=== PATIENT | male | born 1965 | race Caucasian/White ===

== ENCOUNTER 2017-03-22 11:24 | Emergency (ER) | payer OTHER ==
[~2017-03-22] VITALS: Ht 180.3 cm; Wt 85.0 kg
[2017-03-22] MEDS ORDERED: LISINOPRIL20 MG PO (11:36)
[2017-03-22] MEDS ORDERED: METOPROL TAR25 MG PO (11:37)
[2017-03-22] MEDS ORDERED: HYDROCHLOROT25 MG PO (11:37)
[2017-03-22] MEDS ORDERED: ZOLPIDEM5 M1 PO (11:38)
[2017-03-22] MEDS ORDERED: CELEBREX100 M1 PO (11:38)
[2017-03-22 11:57] LABS: HEMOGLOBIN 16.8 g/dl (14.0-18.0); IMMATURE GRANULOCYTES 0.3 % (0.0-1.0); MEAN CELL VOLUME 88.8 fL CALC (80.0-100.0); MEAN CORPUSCULAR HGB 31.8 pG CALC (26.0-32.0); MEAN CORPUSCULAR HGB CONC 35.7 g/L CALC (32.0-36.0); NEUT# 4.93 thou/uL (1.82-7.42); RED BLOOD COUNT 5.29 mill/uL (4.70-6.10); RED CELL DISTRI WIDTH 12.2 % (11.5-15.5)
[2017-03-22 12:11] LABS: ACT PARTIAL THROMBO TIME 28.3 SECONDS (20.0-32.5); PROTHROMBIN TIME 10.5 SECONDS (9.0-12.5)
[2017-03-22 12:17] LABS: ALBUMIN 5.1 g/dL (3.2-5.0); ALKALINE PHOSPHATASE 53 u/l (38-126); ANION GAP 20 (6-22 (CALC)); BILIRUBIN, TOTAL 1.7 mg/dL (0.0-1.4); BUN 18 mg/dL (9-20); BUN/CREATININE RATIO 18 (12-20 (CALC)); CALCIUM 10.8 mg/dL (8.4-10.2); CARBON DIOXIDE 23 mmol/l (22-30); CHLORIDE 97 mmol/l (95-108); CREATININE 1.1 mg/dL (0.7-1.3); GFR > 60 ML/MIN (>=60 (CALC)); GFR FOR AFR.AMER. > 60 ML/MIN (>=60 (CALC)); GLUCOSE 121 mg/dL (75-110); POTASSIUM 3.8 mmol/l (3.5-5.1); SGOT/AST 38 u/l (17-59); SGPT/ALT 43 u/l (21-72); SODIUM 137 mmol/l (137-146); TOTAL PROTEIN 7.8 g/dL (6.3-8.2)
[2017-03-22 12:24] VITALS: BP 165/96
[2017-03-22 12:29] LABS: MYOGLOBIN 52 ng/mL (0 - 121)
== END 2017-03-22 12:26 | disposition short-term general hospital (02) | DRG 311 ==
LOC: ED 11:24
PROVIDERS: Emergency Medicine
DX: I20.0 Unstable angina (principal); I10 Essential (primary) hypertension; F17.200 Nicotine dependence, unspecified, uncomplicated
CPT/HCPCS: J1650; J2060